=== PATIENT | female | born 1975 | race Caucasian/White ===

== ENCOUNTER 2016-09-09 08:30 | Emergency (ER) | payer BC ==
[~2016-09-09] VITALS: Ht 167.6 cm; Wt 60.8 kg
[~2016-09-09 08:30] MED LIST: ALBUAER19 INH; ATV5 PO; EPP3/2 IM; LAMO200T PO; LEVO-14 PO; MRLP120 PO; MULT-506 PO; allergy shots
[2016-09-09 08:32] VITALS: TEMP 36.6; Ht 167.6 cm; Wt 60.8 kg
[2016-09-09] MEDS ORDERED: LORA-741 PO (09:47)
[2016-09-09] MEDS ORDERED: CEFTRIAXONE SOD 350MG/ML 1 GM VIAL IM STA (09:48)
[2016-09-09] MEDS ORDERED: AZITHROMYCIN 250 MG TAB PO STA (09:48)
[2016-09-09] MEDS ORDERED: PHENERGAN 25MG HOMEPACK PO ONE (10:00)
[2016-09-09] MEDS ORDERED: ONDANSETRON HOME PACK 4MG OD TAB PO ONE (10:00)
[2016-09-09] MEDS ORDERED: HIV POST EXPOSURE PROPHYLAXIS KIT ONE (10:00)
[2016-09-09] MEDS ORDERED: DIPHTHERIA/TETANUS/PERTUSSIS 0.5 ML SYR/VIAL IM. ONE (10:00)
[2016-09-09] MEDS ORDERED: TRVHP PO (11:11)
[2016-09-09] MEDS ORDERED: RALT400T PO (11:11)
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
[2016-09-09 11:26] VITALS: BP 123/105; PULSE 74; O2SAT 96
--- NOTE | 2016-09-11 17:17 | Pharmacy Progress Note ---
ED Pharmacist Counseling Note Date of Service: Sep 11, 2016. Patient called requesting information on potential drug interactions. Patient was prescribed raltegravir and Truvada here. Now with yeast infection and other provider prescribed fluconazole. Counseled that raltegravir, Truvada, and fluconazole can be taken together safely. Patient acknowledged understanding and did not have any other questions
== END 2016-09-09 11:27 | disposition home or self-care (01) ==
LOC: C.EDB 08:32
DX: Z11.4 Encounter for screening for human immunodeficiency virus [HIV] (principal); T74.21XA Adult sexual abuse, confirmed, initial encounter; Z23 Encounter for immunization; X58.XXXA Exposure to other specified factors, initial encounter; F41.9 Anxiety disorder, unspecified; F31.9 Bipolar disorder, unspecified; Z83.3 Family history of diabetes mellitus

== ENCOUNTER → 2017-05-04 | Outpatient (CLI) | payer BC ==
[~2017-05-04] MED LIST changes: -ALBUAER19 INH; -ATV5 PO; -EPP3/2 IM; -LEVO-14 PO; +LORA-741 PO; -MRLP120 PO; -MULT-506 PO; +RALT400T PO; +TRVHP PO; -allergy shots
--- NOTE | 2017-05-04 13:57 | DIAGNOSTIC IMAGING REPORT ---
R FOOT MIN 3 VIEWS CLINICAL HISTORY: 42 years-old Female presenting with RIGHT FOOT PAIN. TECHNIQUE: Frontal, oblique, and lateral views of the right foot were obtained. COMPARISON: None. FINDINGS: No acute fracture or malalignment. Os peroneum noted. Accessory navicular noted. No advanced degenerative change. No radiographic soft tissue abnormality. IMPRESSION: No acute osseous injury. Electronically signed by: Rock Mejia M.D. 05/04/2017 1:55 PM Dictated Date/Time: 05/04/2017 1:55 PM
== END | disposition home or self-care (01) ==
LOC: C.RDSM 13:00
PROVIDERS: ATTEND Family Medicine
DX: M79.671 Pain in right foot (principal)

== ENCOUNTER → 2017-08-06 | Outpatient (CLI) | payer BC ==
--- NOTE | 2017-08-06 11:01 | DIAGNOSTIC IMAGING REPORT ---
L TIBIA/FIBULA 2 VIEWS CLINICAL HISTORY: 42 years-old Female presenting with PAIN IN LEFT LOWER LEG. TECHNIQUE: Frontal and lateral views of the left lower leg were obtained. COMPARISON: None. FINDINGS: Knee joint and ankle mortise grossly congruent. No periosteal reaction. No acute fracture or malalignment. No advanced degenerative change. No radiographic soft tissue abnormality. IMPRESSION: No acute osseous injury. Electronically signed by: Rock Mejia M.D. 08/06/2017 10:59 AM Dictated Date/Time: 08/06/2017 10:58 AM
== END | disposition home or self-care (01) ==
LOC: C.RDSM 10:30
PROVIDERS: ATTEND Family Medicine
DX: M79.662 Pain in left lower leg (principal)